=== PATIENT | male | born 1985 | race Caucasian/White ===

== ENCOUNTER 2018-03-31 23:00 | Emergency (ER) | payer BC ==
[2018-03-31] MEDS ORDERED: Sodium Chloride 0.9% 10 ML Syringe FLUSH PRN (23:54)
[2018-03-31] MEDS ORDERED: Sodium Chloride 0.9% 2.5 ML Syringe FLUSH PRN (23:54)
[2018-03-31] MEDS ORDERED: Ketorolac 30 MG/ML SDV IVPUSH ONE (23:55)
[2018-03-31] MEDS ORDERED: methylPREDNISolone Sodium Succinate 125 MG/2 ML SDV IVPUSH ONE (23:55)
--- NOTE | 2018-03-31 23:59 | EDM.PDOC ---
ED HPI GENERAL MEDICAL PROBLEM - General Chief Complaint: Back Pain or Injury Stated Complaint: BACK PAIN Time Seen by Provider: 03/31/18 23:23 - History of Present Illness INITIAL COMMENTS - FREE TEXT/NARRATIVE: HISTORY AND PHYSICAL: History of present illness: The patient is a 32-year-old male who has a long-standing history of lumbar back pain and bulging disks and last had an MRI in 2008 and presents with complaints of exacerbation of similar pain. The patient states he has done physical therapy and worked with a chiropractor but never had any surgical intervention has been doing very well. He says that several times a year he will have a flareup and he is able to manage it at home with [id number] meds rest and the chiropractor. The patient says that on Thursday he took a plane to come and work here and since that time he has had an exacerbation of similar pain that he has had in the past but it is worse than it has ever been. It is on the left side going down his left leg and he says that he has had only a small amount of urination since yesterday but does not feel like urine is trapped or feel pressure in the suprapubic area.. He has not leaking urine or having any bowel disturbances. He has no weakness in his leg but any movement or pressure on his left back causes pain and movement of his trunk and lower back also increases the pain.. He has no history and no kidney stones no fevers no chills or flank pain. He has no abdominal pain nausea or vomiting. Patient states that he would prefer not to receive any significant amount of narcotics as he has had issues with them in the past but will be accepting of medications here in the ED . Review of systems: As per history of present illness and below otherwise all systems reviewed and negative. Past medical history: As per history of present illness and as reviewed below otherwise noncontributory. Surgical history: As per history of present illness and as reviewed below otherwise noncontributory. Social history: No reported history of drug or alcohol abuse. Family history: As per history of present illness and as reviewed below otherwise noncontributory. Physical exam: General:: Well-developed well-nourished man who is nontoxic and looks very uncomfortable in the room. Vital signs are reviewed by me. Patient prefers to not lean on his left buttocks. HEENT: Atraumatic, normocephalic, negative for conjunctival pallor or scleral icterus, mucous membranes moist, throat clear, neck supple, nontender, trachea midline. Lungs: Clear to auscultation, breath sounds equal bilaterally, chest nontender. Heart: S1S2, regular rate and rhythm no overt murmurs Abdomen: Soft, nondistended, nontender. NABSNegative for costovertebral tenderness. Pelvis: Stable nontender. Genitourinary: Deferred. Rectal: Perianal sensation is intact and push and squeeze and tone are also intact Extremities: Atraumatic, negative for cords or calf pain. Neurovascular unremarkable. Full range of motion without any defects or deficits Neuro: Awake, alert, oriented. Cranial nerves II through XII unremarkable. Cerebellum unremarkable. Motor and sensory unremarkable throughout. Exam nonfocal. Dorsi and plantar flexion are intact 5/5 inclusive of the great toe. Reflexes on the right is brisk +2 and reflex on the left is very diminished Back: There are no midline step-offs in his defects of the thoracic or lumbar spine and there is discomfort with palpation of the paraspinal musculature on the left extending into the buttocks. Patient has a great deal of discomfort when he is trying to lay completely in the supine position for first to keep his hips flexed. Diagnostics: Bladder [id number] Therapeutics: IV, Solu-Medrol, Toradol Ativan Dilaudid I discussed the care plan with the patient and significant other at bedside. Currently he is feeling significantly improved and the pain is down to a 3/10. He continues to have no weakness in his legs no tingling or numbness and he now tells me that he has had urine output throughout the day but he has not been eating and drinking very much though it has been less than his usual. The patient also tells me that he went to work today and did activities despite the pain which may have aggravated it even more. I've offered the patient CT scan of the lumbar spine with the caveat that it does not replace an MRI but I am unable to do that at this time; I told them the CT scan might offer us some information about his ongoing pain but would not be definitive testing.. I have also told the patient we have limited resources and we cannot do MRI at this time but that I would be willing to transfer him to do an MRI if he felt that this pain was not significantly better and he would like to defer that at this time. He would like to try to go home and try pain management at home and return if there are problems and connect for an outpatient MRI with our clinic. He states that because of his narcotic history he would only like 3 tablets of any narcotic but he is comfortable with muscle relaxers and Toradol. I will write prescriptions for all of these. Impression: Lumbar back pain with history of disc disease improving Definitive disposition and diagnosis as appropriate pending reevaluation and review of above. 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 ED EXAM, GENERAL - Physical Exam Exam: See Below (see dictation) Course - Vital Signs Last Recorded V/S: Last Vital Signs Temp 35.8 C 03/31/18 23:27 Pulse 72 03/31/18 23:27 Resp 20 03/31/18 23:27 BP 116/78 03/31/18 23:27 Pulse Ox 96 03/31/18 23:27 - Orders/Labs/Meds Orders: Active Orders 24 hr Category Date Time Status Bladder Scan [RC] ASDIRECTED Care 03/31/18 23:54 Active Sodium Chloride 0.9% [Saline Flush] Med 03/31/18 23:54 Active 10 ml FLUSH ASDIRECTED PRN Sodium Chloride 0.9% [Saline Flush] Med 03/31/18 23:54 Active 2.5 ml FLUSH ASDIRECTED PRN Saline Lock Insert [OM.PC] Stat Oth 03/31/18 23:54 Ordered Medication Orders Sodium Chloride (Saline Flush) 10 ml FLUSH ASDIRECTED PRN PRN Reason: Keep Vein Open Sodium Chloride (Saline Flush) 2.5 ml FLUSH ASDIRECTED PRN PRN Reason: Keep Vein Open Meds: Medications Generic Name Dose Route Start Last Admin Trade Name Frestas PRN Reason Stop Dose Admin Sodium Chloride 10 ml 03/31/18 23:54 Saline Flush FLUSH ASDIRECTED PRN Keep Vein Open Sodium Chloride 2.5 ml 03/31/18 23:54 Saline Flush FLUSH ASDIRECTED PRN Keep Vein Open Discontinued Medications Generic Name Dose Route Start Last Admin Trade Name Van PRN Reason Stop Dose Admin Hydromorphone HCl 1 mg 04/01/18 00:05 04/01/18 00:11 Dilaudid IVPUSH 04/01/18 00:06 1 mg ONETIME ONE Administration Ketorolac Tromethamine 30 mg 03/31/18 23:55 04/01/18 00:10 Toradol IVPUSH 03/31/18 23:56 30 mg ONETIME ONE Administration Lorazepam 0.5 mg 04/01/18 00:05 04/01/18 00:11 Ativan IVPUSH 04/01/18 00:06 0.5 mg ONETIME ONE Administration Methylprednisolone Sodium Succinate 125 mg 03/31/18 23:55 04/01/18 00:10 Solu-Medrol IVPUSH 03/31/18 23:56 125 mg ONETIME ONE Administration Ondansetron HCl 4 mg 04/01/18 00:14 04/01/18 00:15 Zofran IVPUSH 04/01/18 00:15 4 mg ONETIME ONE Administration Ondansetron HCl Confirm 04/01/18 00:14 Zofran Administered 04/01/18 00:15 Dose 4 mg .ROUTE .STK-MED ONE Departure - Departure Time of Disposition: 01:10 Disposition: Home, Self-Care 01 Condition: Good (Lumbar back pain) Clinical Impression: Lumbar back pain, Lumbar disc disease - Discharge Information Referrals: PCP,None [Primary Care Provider] - Forms: ED Department Discharge Additional Instructions: The following information is given to patients seen in the emergency department who are being discharged to home. This information is to outline your options for follow-up care. We provide all patients seen in our emergency department with a follow-up referral. The need for follow-up, as well as the timing and circumstances, are variable depending upon the specifics of your emergency department visit. If you don't have a primary care physician on staff, we will provide you with a referral. We always advise you to contact your personal physician following an emergency department visit to inform them of the circumstance of the visit and for follow-up with them and/or the need for any referrals to a consulting specialist. The emergency department will also refer you to a specialist when appropriate. This referral assures that you have the opportunity for followup care with a specialist. All of these measure are taken in an effort to provide you with optimal care, which includes your followup. Under all circumstances we always encourage you to contact your private physician who remains a resource for coordinating your care. When calling for followup care, please make the office aware that this follow-up is from your recent emergency room visit. If for any reason you are refused follow-up, please contact the [facility] emergency department at and ask to speak to the emergency department charge nurse. [facility] Primary care- Internal Medicine and Family [address] [address] Please use medications as needed and prescribed but take the Medrol Dosepak starting later this afternoon. Please call and schedule a follow-up appointment in our residency clinic using resources given to you today. Please return to ER as needed and as we have discussed. Try to stretch and open up the area as much as possible and do all activities very slowly and carefully so as to avoid new injury. - My Orders Last 24 Hours: My Active Orders 03/31/18 23:54 Bladder Scan [RC] ASDIRECTED Sodium Chloride 0.9% [Saline Flush] 10 ml FLUSH ASDIRECTED PRN Sodium Chloride 0.9% [Saline Flush] 2.5 ml FLUSH ASDIRECTED PRN Saline Lock Insert [OM.PC] Stat - Assessment/Plan Last 24 Hours: My Active Orders 03/31/18 23:54 Bladder Scan [RC] ASDIRECTED Sodium Chloride 0.9% [Saline Flush] 10 ml FLUSH ASDIRECTED PRN Sodium Chloride 0.9% [Saline Flush] 2.5 ml FLUSH ASDIRECTED PRN Saline Lock Insert [OM.PC] Stat
[2018-04-01] MEDS ORDERED: LORazepam 2 MG/ML SDV IVPUSH ONE (00:05)
[2018-04-01] MEDS ORDERED: HYDROmorphone 1 MG/ML Syringe IVPUSH ONE ×2 (00:05→01:13)
[2018-04-01] MEDS ORDERED: Ondansetron 4 MG/2 ML SDV IVPUSH ONE (00:14)
[2018-04-01] MEDS ORDERED: Ondansetron 4 MG/2 ML SDV ONE (00:14)
== END 2018-04-01 02:00 | disposition home or self-care (01) ==
LOC: MW.ED 23:00
DX: M51.9 Unspecified thoracic, thoracolumbar and lumbosacral intervertebral disc disorder (principal); F31.9 Bipolar disorder, unspecified; F17.210 Nicotine dependence, cigarettes, uncomplicated; Z79.899 Other long term (current) drug therapy
CPT/HCPCS: 51798; 96374; 96375; 96376; 99283; J1170; J1885; J2060; J2405; J2930

== ENCOUNTER 2018-05-07 13:19 | Emergency (ER) | payer BC ==
--- NOTE | 2018-05-07 13:41 | EDM.PDOC ---
ED HPI GENERAL MEDICAL PROBLEM - General Chief Complaint: Back Pain or Injury Stated Complaint: BACK PAIN Time Seen by Provider: 05/07/18 13:35 - History of Present Illness INITIAL COMMENTS - FREE TEXT/NARRATIVE: HISTORY AND PHYSICAL: History of present illness: The patient is a 33-year-old male with a long-standing history of lumbar back pain and "bulging disks" who was seen here on March 31 by me and presented at that time with statements that he has flareups of his back pain several times per year and has worked with a chiropractor and physical therapy in the past for this pain. He has never had surgical intervention. On that visit he had told me his last MRI was 2008 and that he usually manages his back pain flareups with [id number] preps. He told me on that visit that he did have an issue in the past with narcotics and pain meds and he was concerned about using anything strong for his back pain. On that visit he had back pain radiating down his left leg which is typical for him and he was evaluated and treated and offered imaging and declined at that time. It was recommended that he follow-up to get an outpatient MRI and on that visit he was given 3 tablets of narcotics and muscle relaxer for home. The patient received medications here in the ED which did improve his pain. The patient represented today in the ED with complaints of similar pain at his left lower back radiating to his butt and leg. The pain is very similar to his prior episodes and is no different from the last time that I saw him. He denies bowel or bladder disturbances and since his last visit has seen his provider back in [place] as well as his chiropractor and has an MRI scheduled for next Thursday, 5 days from now. The patient states he is leaving for home and 4 days and he consulted his physician about this exacerbation and back pain associated with numbness in his leg. The patient says that he traveled back here and was doing well here and performing his normal work and he said over the last several days the pain has worsened and he thinks he may have aggravated the pain at work. He says he doesn't feel like he is retaining urine nor has he had any loss of bowel or bladder and he has no numbness to his butt area. He says that he does feel weaker in his left leg but he is able to ambulate and do all normal activities. He also says that his leg will intermittently feel numb and tingly but is not persistent. In consultation with his provider back at home in [place] it was recommended that he come here to get pain management and be able to get through the next few days to go home to [place] and have the MRI. Patient is only seeking pain management until that time. The patient and girlfriend tell me that his provider in [place] told him that is L5-S1 were fused and that his L4 disc was "worn out" Review of systems: As per history of present illness and below otherwise all systems reviewed and negative. Past medical history: As per history of present illness and as reviewed below otherwise noncontributory. Surgical history: As per history of present illness and as reviewed below otherwise noncontributory. Social history: No reported history of drug or alcohol abuse. Family history: As per history of present illness and as reviewed below otherwise noncontributory. Physical exam: General: Well-developed well-nourished man who is nontoxic and vital signs are noted by me. 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 He is ambulating about the ED without any distress or ataxia. HEENT: Atraumatic, normocephalic, negative for conjunctival pallor or scleral icterus, mucous membranes moist, throat clear, neck supple, nontender, trachea midline. Lungs: Clear to auscultation, breath sounds equal bilaterally, chest nontender. Heart: S1S2, regular rate and rhythm no overt murmurs Abdomen: Soft, nondistended, nontender. Negative for masses or hepatosplenomegaly. Negative for costovertebral tenderness. Pelvis: Stable nontender. Genitourinary: Deferred. Rectal: Deferred. Extremities: Atraumatic, negative for cords or calf pain. Neurovascular unremarkable. Neuro: Awake, alert, oriented. Cranial nerves II through XII unremarkable. Cerebellum unremarkable. Motor and sensory unremarkable throughout. Exam nonfocal. Dorsi and plantar flexion are intact 5/5 inclusive of the great toe. Patellar reflex on the right is +1 over 2 and on the left is +2 over 4, the left being his affected side. Specifically on simple touch and pressure on the left lower extremity was completely intact on my evaluation. The patient also ambulated in the ED without any distress and he had a good kick at the knee on the left as well as good hip flexor and hamstring use on the right with strength 5/5 Back: There are no midline step-offs tenderness defects of the thoracic or lumbar spine no posterior pelvis tenderness and no discrete areas of muscle tenderness or discomfort or CVA tenderness. Diagnostics: [] Therapeutics: Norflex [place] Patient states that after I saw him on the last visit that he thought the Medrol Kye did help as did the muscle relaxer and pain meds. I will give him a Medrol dose pack as well as [place] to get him through the next few days and the Norflex. He is currently taking Zanaflex and says that that did not work very well and he ran out of that prescription. I advised him on reasons to return to the ED and to keep his scheduled plan of MRI next week. Impression: Lumbar back pain with history of degenerative disc disease acute on chronic Definitive disposition and diagnosis as appropriate pending reevaluation and review of above. 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 ED EXAM, GENERAL - Physical Exam Exam: See Below (See dictation) Course - Vital Signs Last Recorded V/S: Last Vital Signs Temp 36.4 C 05/07/18 13:40 Pulse 80 05/07/18 13:40 Resp 18 05/07/18 13:40 BP 121/89 05/07/18 13:40 Pulse Ox 97 05/07/18 13:40 - Orders/Labs/Meds Orders: Active Orders 24 hr Category Date Time Status Acetaminophen/HYDROcodone [[place] 325-10 MG] Med 05/07/18 14:01 Once 1 tab PO ONETIME ONE Orphenadrine [Norflex] Med 05/07/18 14:01 Once 60 mg IM ONETIME ONE Medication Orders Hydrocodone Bitart/Acetaminophen ([place] 325-10 Mg) 1 tab PO ONETIME ONE Stop: 05/07/18 14:02 Orphenadrine Citrate (Norflex) 60 mg IM ONETIME ONE Stop: 05/07/18 14:02 Meds: Medications Generic Name Dose Route Start Last Admin Trade Name Van PRN Reason Stop Dose Admin Hydrocodone Bitart/Acetaminophen 1 tab 05/07/18 14:01 [place] 325-10 Mg PO 05/07/18 14:02 ONETIME ONE Orphenadrine Citrate 60 mg 05/07/18 14:01 Norflex IM 05/07/18 14:02 ONETIME ONE Departure - Departure Time of Disposition: 14:06 Disposition: Home, Self-Care 01 Condition: Good Clinical Impression: Lumbar disc disease, Lumbar back pain - Discharge Information Referrals: PCP,None [Primary Care Provider] - Forms: ED Department Discharge Additional Instructions: The following information is given to patients seen in the emergency department who are being discharged to home. This information is to outline your options for follow-up care. We provide all patients seen in our emergency department with a follow-up referral. The need for follow-up, as well as the timing and circumstances, are variable depending upon the specifics of your emergency department visit. If you don't have a primary care physician on staff, we will provide you with a referral. We always advise you to contact your personal physician following an emergency department visit to inform them of the circumstance of the visit and for follow-up with them and/or the need for any referrals to a consulting specialist. The emergency department will also refer you to a specialist when appropriate. This referral assures that you have the opportunity for followup care with a specialist. All of these measure are taken in an effort to provide you with optimal care, which includes your followup. Under all circumstances we always encourage you to contact your private physician who remains a resource for coordinating your care. When calling for followup care, please make the office aware that this follow-up is from your recent emergency room visit. If for any reason you are refused follow-up, please contact the [facility] emergency department at and ask to speak to the emergency department charge nurse. [facility] Primary care- Internal Medicine and Family [address] [address] Please use all medications as needed and as directed and you may also add over- the-counter ibuprofen and/or Tylenol supplement. Use heat or ice as you choose and please keep your appointment next week for MRI in [place]. Return to ER as needed and as we discussed - My Orders Last 24 Hours: My Active Orders 05/07/18 14:01 Acetaminophen/HYDROcodone [[place] 325-10 MG] 1 tab PO ONETIME ONE Orphenadrine [Norflex] 60 mg IM ONETIME ONE - Assessment/Plan Last 24 Hours: My Active Orders 05/07/18 14:01 Acetaminophen/HYDROcodone [[place] 325-10 MG] 1 tab PO ONETIME ONE Orphenadrine [Norflex] 60 mg IM ONETIME ONE
[2018-05-07] MEDS ORDERED: Acetaminophen/HYDROcodone 325-10 MG Tab PO ONE (14:01)
== END 2018-05-07 14:30 | disposition home or self-care (01) ==
LOC: MW.ED 13:19
DX: M53.87 Other specified dorsopathies, lumbosacral region (principal); F31.9 Bipolar disorder, unspecified; Z79.899 Other long term (current) drug therapy
CPT/HCPCS: 96372; 99283; A9270; J2360

== ENCOUNTER 2018-05-08 13:21 | Emergency (ER) | payer BC ==
[2018-05-08] MEDS ORDERED: Diphtheria,Pertussis(Acell),Tetanus Vaccine 0.5 ML Syringe IM ONE (13:52)
--- NOTE | 2018-05-08 13:55 | EDM.PDOC ---
ED HPI GENERAL MEDICAL PROBLEM - General Chief Complaint: Laceration Stated Complaint: CUT TO HIS THUMP Time Seen by Provider: 05/08/18 13:50 Source of Information: Reports: Patient History Limitations: Reports: No Limitations - History of Present Illness INITIAL COMMENTS - FREE TEXT/NARRATIVE: HISTORY AND PHYSICAL: History of present illness: She is a 33-year-old male here with a laceration to his right thumb. He states that he was shooting a crossbow today and the string caught his right thumb just lateral to the fingernail. Patient is uncertain of tetanus status. Review of systems: As per history of present illness and below otherwise all systems reviewed and negative. Past medical history: As per history of present illness and as reviewed below otherwise noncontributory. Surgical history: As per history of present illness and as reviewed below otherwise noncontributory. Social history: No reported history of drug or alcohol abuse. Family history: As per history of present illness and as reviewed below otherwise noncontributory. Physical exam: General: Patient sitting comfortably in no acute distress HEENT: Atraumatic, normocephalic, pupils reactive, negative for conjunctival pallor or scleral icterus, mucous membranes moist, throat clear, neck supple, nontender, trachea midline. No meningeal signs. Lungs: Clear to auscultation, breath sounds equal bilaterally, chest nontender. Heart: S1S2, regular, negative for clicks, rubs, or overt murmur. Skin: There is a very superficial 1.5 meter laceration just lateral to the right fingernail. Ecchymosis of the lateral side of the fingernail bed noted. Wound was explored to base, no tendon or vascular injury. Extremities: negative for cords or calf pain. Neurovascular unremarkable. Neuro: Awake, alert, oriented. Cranial nerves II through XII unremarkable. Cerebellum unremarkable. Motor and sensory unremarkable throughout. Exam nonfocal. Notes: Diagnostics: None Therapeutics: Tdap Impression: Laceration Plan: 1. Keep the area clean and dry as instructed. 2. Follow-up with primary care provider as needed. 3. Return to ED as needed as discussed Definitive disposition and diagnosis as appropriate pending reevaluation and review of above. right thumb Pain Score (Numeric/FACES): 8 - Related Data Allergies Allergy/AdvReac Type Severity Reaction Status Date / Time No Known Allergies Allergy Verified 05/08/18 13:35 Home Meds: Home Meds Sertraline HCl [Zoloft] 100 mg PO DAILY 03/31/18 [History] Zolpidem Tartrate [Ambien] 10 mg PO DAILY 03/31/18 [History] lamoTRIgine [Lamictal] 100 mg PO DAILY 03/31/18 [History] Past Medical History HEENT History: Reports: None Cardiovascular History: Reports: None Respiratory History: Reports: None Gastrointestinal History: Reports: None Genitourinary History: Reports: None Musculoskeletal History: Reports: Amputation Other Neuro History: bulging disc; 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 Psychiatric History: Reports: Bipolar, Depression Other Psychiatric History: insomnia Endocrine/Metabolic History: Reports: None Hematologic History: Reports: None Oncologic (Cancer) History: Reports: None Dermatologic History: Reports: None - Infectious Disease History Infectious Disease History: Reports: Chicken Pox - Past Surgical History Neurological Surgical History: Reports: None Social & Family History - Family History Family Medical History: Noncontributory - Tobacco Use Smoking Status *Q: Current Every Day Smoker Years of Tobacco use: 20 Packs/Tins Daily: 1 - Caffeine Use Caffeine Use: Reports: Coffee - Recreational Drug Use Recreational Drug Use: No ED ROS GENERAL - Review of Systems Review Of Systems: ROS reveals no pertinent complaints other than HPI. ED EXAM, SKIN/RASH Exam: See Below (see dictation) Course - Vital Signs Last Recorded V/S: Last Vital Signs Temp 36.4 C 05/08/18 13:21 Pulse 75 05/08/18 13:21 Resp 18 05/08/18 13:21 BP 109/63 05/08/18 13:21 Pulse Ox 96 05/08/18 13:21 Departure - Departure Time of Disposition: 13:54 Disposition: Home, Self-Care 01 Condition: Good Clinical Impression: Laceration - Discharge Information Referrals: PCP,None [Primary Care Provider] - Additional Instructions: The following information is given to patients seen in the emergency department who are being discharged to home. This information is to outline your options for follow-up care. We provide all patients seen in our emergency department with a follow-up referral. The need for follow-up, as well as the timing and circumstances, are variable depending upon the specifics of your emergency department visit. If you don't have a primary care physician on staff, we will provide you with a referral. We always advise you to contact your personal physician following an emergency department visit to inform them of the circumstance of the visit and for follow-up with them and/or the need for any referrals to a consulting specialist. The emergency department will also refer you to a specialist when appropriate. This referral assures that you have the opportunity for follow-up care with a specialist. All of these measure are taken in an effort to provide you with optimal care, which includes your follow-up. Under all circumstances we always encourage you to contact your private physician who remains a resource for coordinating your care. When calling for follow-up care, please make the office aware that this follow-up is from your recent emergency room visit. If for any reason you are refused follow-up, please contact the [facility] Emergency Department at and asked to speak to the emergency department charge nurse. [facility] [address] [place] [id number] [facility] [address] [place] [id number] 1. Keep the area clean and dry as instructed. 2. Follow-up with primary care provider as needed. 3. Return to ED as needed as discussed
== END 2018-05-08 14:07 | disposition home or self-care (01) ==
LOC: MW.ED 13:21
DX: S61.011A Laceration without foreign body of right thumb without damage to nail, initial encounter (principal); Z79.899 Other long term (current) drug therapy; F17.210 Nicotine dependence, cigarettes, uncomplicated; Z23 Encounter for immunization; W23.0XXA Caught, crushed, jammed, or pinched between moving objects, initial encounter
CPT/HCPCS: 90471; 90715; 99282-25

== ENCOUNTER 2018-09-14 11:15 | Emergency (ER) | payer OTHER, BC ==
[2018-09-14] MEDS ORDERED: Bacitracin Oint 1 GM U/D Packet TOP ONE (11:38)
--- NOTE | 2018-09-14 11:41 | EDM.PDOC ---
ED HPI GENERAL MEDICAL PROBLEM - General Chief Complaint: Laceration Stated Complaint: CUT ON RIGHT HAND Time Seen by Provider: 09/14/18 11:18 - History of Present Illness INITIAL COMMENTS - FREE TEXT/NARRATIVE: HISTORY AND PHYSICAL: History of present illness: The patient is a 33-year-old male who presents with a puncture wound to his right hand that he sustained at work while he was using a knife. The patient is left-hand dominant and said he was working with a knife when he actually stabbed his hand. He said it was "spurting blood" at the scene but a pressure dressing was applied and is no longer bleeding. The patient has no neurosensory changes in his digits and no other injuries. Patient is unsure of his last tetanus shot but according to the computer he had in April of this year Review of systems: As per history of present illness and below otherwise all systems reviewed and negative. Past medical history: As per history of present illness and as reviewed below otherwise noncontributory. Surgical history: As per history of present illness and as reviewed below otherwise noncontributory. Social history: No reported history of drug or alcohol abuse. Family history: As per history of present illness and as reviewed below otherwise noncontributory. Physical exam: General: Well-developed well-nourished man is nontoxic and vital signs are noted by me HEENT: Atraumatic, normocephalic, negative for conjunctival pallor or scleral icterus, mucous membranes moist, throat clear, neck supple, nontender, trachea midline. Lungs: Clear to auscultation, breath sounds equal bilaterally, chest nontender. Heart: S1S2, regular rate and rhythm no overt murmurs Abdomen: Soft, nondistended, nontender. NABS Pelvis: Deferred Genitourinary: Deferred. Rectal: Deferred. Extremities: Atraumatic with full range of motion of all extremities with the exception of the right hand where on the palmar surface near the hyperthenar eminence there is a 1 cm puncture laceration with a small amount of subcutaneous fat seen. There is no active bleeding no soft tissue swelling and no neurosensory changes in the hand or fingers. The patient has full intact flexion and extension good cap refill and positive pulses throughout. The legs are, negative for cords or calf pain. Neurovascular unremarkable. Neuro: Awake, alert, oriented. Cranial nerves II through XII unremarkable. Cerebellum unremarkable. Motor and sensory unremarkable throughout. Exam nonfocal. Diagnostics: [] Therapeutics: bacitracin and dressing, she was unsure of his last tetanus shot but according to the computer he had in April of this year Procedure note: After the procedure was explained to the patient and the wound was cleansed by nursing and the wound was explored. The Base was not able to be seen as this is a puncture wound. The small piece of subcutaneous fat that was emerging from the puncture area was debrided. The skin edges were reapproximately using a total number of #1 suture of 4-0 nylon . The patient tolerated the procedure well and there were no complications. Bacitracin and a dressing were applied. The repair was performed by Ivan TORRES Impression: Puncture laceration of left hand Definitive disposition and diagnosis as appropriate pending reevaluation and review of above. Left Hand Pain Score (Numeric/FACES): 5 - Related Data Allergies Allergy/AdvReac Type Severity Reaction Status Date / Time No Known Allergies Allergy Verified 05/08/18 13:35 Home Meds: Home Meds Sertraline HCl [Zoloft] 100 mg PO DAILY 03/31/18 [History] Zolpidem Tartrate [Ambien] 10 mg PO DAILY 03/31/18 [History] lamoTRIgine [Lamictal] 100 mg PO DAILY 03/31/18 [History] Pregabalin [Lyrica] 100 mg PO BID 09/14/18 [History] Past Medical History HEENT History: Reports: None Cardiovascular History: Reports: None Respiratory History: Reports: None Gastrointestinal History: Reports: None Genitourinary History: Reports: None Musculoskeletal History: Reports: Amputation Other Neuro History: bulging disc; 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 Psychiatric History: Reports: Bipolar, Depression Other Psychiatric History: insomnia Endocrine/Metabolic History: Reports: None Hematologic History: Reports: None Oncologic (Cancer) History: Reports: None Dermatologic History: Reports: None - Infectious Disease History Infectious Disease History: Reports: Chicken Pox - Past Surgical History Neurological Surgical History: Reports: None Social & Family History - Family History Family Medical History: Noncontributory - Caffeine Use Caffeine Use: Reports: Coffee ED ROS GENERAL - Review of Systems Review Of Systems: ROS reveals no pertinent complaints other than HPI. ED EXAM, SKIN/RASH Exam: See Below (See dictation) Course - Vital Signs Last Recorded V/S: Last Vital Signs Temp 36.3 C 09/14/18 11:29 Pulse 81 09/14/18 11:29 Resp 16 09/14/18 11:29 BP 118/74 09/14/18 11:29 Pulse Ox 95 09/14/18 11:29 - Orders/Labs/Meds Meds: Medications Discontinued Medications Generic Name Dose Route Start Last Admin Trade Name Van PRN Reason Stop Dose Admin Bacitracin 1 dose 09/14/18 11:38 Bacitracin Oint 1 Gm TOP 09/14/18 11:39 ONETIME ONE Lidocaine HCl 5 ml 09/14/18 11:37 Xylocaine-Mpf 1% INJECT 09/14/18 11:38 ONETIME ONE Departure - Departure Time of Disposition: 12:19 Disposition: Home, Self-Care 01 Condition: Good Clinical Impression: Puncture wound - Discharge Information Instructions: Puncture Wound, [id number] Referrals: PCP,None [Primary Care Provider] - Forms: ED Department Discharge Additional Instructions: The following information is given to patients seen in the emergency department who are being discharged to home. This information is to outline your options for follow-up care. We provide all patients seen in our emergency department with a follow-up referral. The need for follow-up, as well as the timing and circumstances, are variable depending upon the specifics of your emergency department visit. If you don't have a primary care physician on staff, we will provide you with a referral. We always advise you to contact your personal physician following an emergency department visit to inform them of the circumstance of the visit and for follow-up with them and/or the need for any referrals to a consulting specialist. The emergency department will also refer you to a specialist when appropriate. This referral assures that you have the opportunity for followup care with a specialist. All of these measure are taken in an effort to provide you with optimal care, which includes your followup. Under all circumstances we always encourage you to contact your private physician who remains a resource for coordinating your care. When calling for followup care, please make the office aware that this follow-up is from your recent emergency room visit. If for any reason you are refused follow-up, please contact the [facility] emergency department at and ask to speak to the emergency department charge nurse. [facility] Specialty clinic-Plastic Surgery and Hand Surgery Professional Building [address] [place] [id number] Please take the Augmentin you've been prescribed and as directed. Return to the ER in 7 days to have the suture removed and/o follow-up with our Hand surgeon for further care and evaluation. Return to ER if there is any drainage or redness or increased swelling to the area in the next few days.
== END 2018-09-14 12:40 | disposition home or self-care (01) ==
LOC: MW.ED 11:15
DX: S61.432A Puncture wound without foreign body of left hand, initial encounter (principal); Z79.899 Other long term (current) drug therapy; W26.0XXA Contact with knife, initial encounter
CPT/HCPCS: 99282

== ENCOUNTER 2019-08-15 15:13 | Emergency (ER) | payer BC ==
[2019-08-15] MEDS ORDERED: methylPREDNISolone Sodium Succinate 125 MG/2 ML SDV IVPUSH ONE (15:18)
[2019-08-15] MEDS ORDERED: diphenhydrAMINE 50 MG/ML SDV IVPUSH ONE (15:18)
--- NOTE | 2019-08-15 15:28 | EDM.PDOC ---
ED HPI GENERAL MEDICAL PROBLEM - General Chief Complaint: Allergic Reaction Stated Complaint: ALLERGIC REACTION Time Seen by Provider: 08/15/19 15:14 Source of Information: Reports: Patient History Limitations: Reports: No Limitations - History of Present Illness INITIAL COMMENTS - FREE TEXT/NARRATIVE: HISTORY AND PHYSICAL: History of present illness: Patient is a 34-year-old male who presents to the ED today with concern of right ear pain, right-sided throat pain since after eating lunch. Patient states he was eating at a local [employer] restaurant in which she is eating there many times. Patient states he ordered his usual food and has not eaten anything new. Patient states he was concerned that he might be having an allergic reaction because he began having right ear pain and right-sided throat pain after he was done eating. Patient denies any known allergies. Patient denies any other symptoms or concerns. Patient denies fever, chills, chest pain, shortness of breath, or cough. Denies headache, neck stiff ness, change in vision, syncope, or near syncope. Denies nausea, vomiting, abdominal pain, diarrhea, constipation, or dysuria. Has not noted any blood in urine or stool. Patient has been eating and drinking appropriately. Review of systems: As per history of present illness and below otherwise all systems reviewed and negative. Past medical history: As per history of present illness and as reviewed below otherwise noncontributory. Surgical history: As per history of present illness and as reviewed below otherwise noncontributory. Social history: See social history for further information Family history: As per history of present illness and as reviewed below otherwise noncontributory. Physical exam: General: Patient is alert, oriented, and in no acute distress. Patient sitting comfortably on exam table. HEENT: Atraumatic, normocephalic, pupils equal and reactive bilaterally, negative for conjunctival pallor or scleral icterus, mucous membranes moist, TMs normal bilaterally, throat clear, external auditory canal of the right is edematous with a mild amount granulation tissue in the canal, tragus tenderness of the right with tenderness with movement of the auricle which patients states is the pain he is having, negative mastoid tenderness bilaterally, neck supple, nontender, trachea midline. No drooling or trismus noted. No meningeal signs. No hot potato voice noted. Lungs: Clear to auscultation, breath sounds equal bilaterally, chest nontender. Heart: S1S2, regular rate and rhythm without overt murmur Abdomen: Soft, nondistended, nontender. Negative for masses or hepatosplenomegaly. Negative for costovertebral tenderness. Pelvis: Stable nontender. Genitourinary: Deferred. Rectal: Deferred. Skin: Intact, warm, dry. No lesions or rashes noted. Extremities: Atraumatic, negative for cords or calf pain. Neurovascular unremarkable. Neuro: Awake, alert, oriented. Cranial nerves II through XII unremarkable. Cerebellum unremarkable. Motor and sensory unremarkable throughout. Exam nonfocal. Notes: Discussed the importance for follow-up with a primary care provider. Voices understanding and is agreeable to plan of care. Denies any further questions or concerns at this time. Diagnostics: None Therapeutics: None Prescription: Cortisporin Otic Impression: Acute otitis externa Plan: 1. Take medication as prescribed. You can alternate ibuprofen and Tylenol as directed for pain and discomfort. 2. Follow-up with her primary care provider as discussed. Return to the ED as needed and as discussed. Definitive disposition and diagnosis as appropriate pending reevaluation and review of above. throat Pain Score (Numeric/FACES): 1 - Related Data Allergies Allergy/AdvReac Type Severity Reaction Status Date / Time No Known Allergies Allergy Verified 05/08/18 13:35 Home Meds: Home Meds Sertraline HCl [Zoloft] 100 mg PO DAILY 03/31/18 [History] Zolpidem Tartrate [Ambien] 10 mg PO DAILY 03/31/18 [History] lamoTRIgine [Lamictal] 100 mg PO DAILY 03/31/18 [History] Pregabalin [Lyrica] 100 mg PO BID 09/14/18 [History] Diazepam [Valium] 08/15/19 [History] oxyCODONE HCl/Acetaminophen [Percocet 10-325 mg Tablet] 08/15/19 [History] Past Medical History HEENT History: Reports: None Cardiovascular History: Reports: None Respiratory History: Reports: None Gastrointestinal History: Reports: None Genitourinary History: Reports: None Musculoskeletal History: Reports: Amputation Neurological History: Reports: Brain Injury, Head Trauma Other Neuro History: bulging disc; 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 Psychiatric History: Reports: Bipolar, Depression Other Psychiatric History: insomnia Endocrine/Metabolic History: Reports: None Hematologic History: Reports: None Oncologic (Cancer) History: Reports: None Dermatologic History: Reports: None - Infectious Disease History Infectious Disease History: Reports: Chicken Pox - Past Surgical History Neurological Surgical History: Reports: None, Laminectomy, Lumbar Spine Social & Family History - Family History Family Medical History: Noncontributory - Tobacco Use Smoking Status *Q: Current Every Day Smoker Years of Tobacco use: 20 Packs/Tins Daily: 1 - Caffeine Use Caffeine Use: Reports: Coffee - Recreational Drug Use Recreational Drug Use: No ED ROS ALLERGIC REACTION - Review of Systems Review Of Systems: Comprehensive ROS is negative, except as noted in HPI. ED EXAM GENERAL NO PERIP PULSE - Physical Exam Exam: See Below (see dictation) Course - Vital Signs Last Recorded V/S: Last Vital Signs Temp 97.3 F 08/15/19 15:18 Pulse 74 08/15/19 15:18 Resp 16 08/15/19 15:18 BP 146/77 H 08/15/19 15:18 Pulse Ox 96 08/15/19 15:18 - Orders/Labs/Meds Meds: Medications Discontinued Medications Generic Name Dose Route Start Last Admin Trade Name Govindq PRN Reason Stop Dose Admin Diphenhydramine HCl 50 mg 08/15/19 15:18 Benadryl IVPUSH 08/15/19 15:19 ONETIME ONE Methylprednisolone Sodium Succinate 125 mg 08/15/19 15:18 Solu-Medrol IVPUSH 08/15/19 15:19 ONETIME ONE Departure - Departure Time of Disposition: 15:28 Disposition: Home, Self-Care 01 Clinical Impression: Acute otitis externa Qualifiers: Otitis externa type: unspecified type Laterality: right Qualified Code(s): H60.501 - Unspecified acute noninfective otitis externa, right ear - Discharge Information Referrals: PCP,Williamobtain [Primary Care Provider] - Additional Instructions: The following information is given to patients seen in the emergency department who are being discharged to home. This information is to outline your options for follow-up care. We provide all patients seen in our emergency department with a follow-up referral. The need for follow-up, as well as the timing and circumstances, are variable depending upon the specifics of your emergency department visit. If you don't have a primary care physician on staff, we will provide you with a referral. We always advise you to contact your personal physician following an emergency department visit to inform them of the circumstance of the visit and for follow-up with them and/or the need for any referrals to a consulting specialist. The emergency department will also refer you to a specialist when appropriate. This referral assures that you have the opportunity for follow-up care with a specialist. All of these measure are taken in an effort to provide you with optimal care, which includes your follow-up. Under all circumstances we always encourage you to contact your private physician who remains a resource for coordinating your care. When calling for follow-up care, please make the office aware that this follow-up is from your recent emergency room visit. If for any reason you are refused follow-up, please contact the [facility] Emergency Department at and asked to speak to the emergency department charge nurse. [facility] [address] [place] [id number] [facility] [address] [place] [phone] 1. Take medication as prescribed. You can alternate ibuprofen and Tylenol as directed for pain and discomfort. 2. Follow-up with her primary care provider as discussed. Return to the ED as needed and as discussed.
== END 2019-08-15 15:50 | disposition home or self-care (01) ==
LOC: MW.ED 15:13
DX: H60.501 Unspecified acute noninfective otitis externa, right ear (principal); F31.9 Bipolar disorder, unspecified; F17.210 Nicotine dependence, cigarettes, uncomplicated; Z79.899 Other long term (current) drug therapy
CPT/HCPCS: 99283

== ENCOUNTER 2019-08-19 14:11 | Emergency (ER) | payer BC ==
--- NOTE | 2019-08-19 14:30 | EDM.PDOC ---
ED HPI GENERAL MEDICAL PROBLEM - General Chief Complaint: ENT Problem Stated Complaint: SORE THROAT Time Seen by Provider: 08/19/19 14:30 Source of Information: Reports: Patient - History of Present Illness INITIAL COMMENTS - FREE TEXT/NARRATIVE: HISTORY AND PHYSICAL: History of present illness: [Patient presents with sore throat, seen initially at onset diagnosed with an external ear infection was provided eardrops however this slowly progressed over the last 4 days now has moderate pharyngitis white patchy exudates no drooling trismus or muffled voice Some difficulty with solid food no difficulty with liquid] Review of systems: As per history of present illness and below otherwise all systems reviewed and negative. Past medical history: As per history of present illness and as reviewed below otherwise noncontributory. Surgical history: As per history of present illness and as reviewed below otherwise noncontributory. Social history: No reported history of drug or alcohol abuse. Family history: As per history of present illness and as reviewed below otherwise noncontributory. Physical exam: HEENT: Atraumatic, normocephalic, pupils reactive, negative for conjunctival pallor or scleral icterus, mucous membranes moist, throat clear, neck supple, nontender, trachea midline. Estuardo signs as per history of present illness Lungs: Clear to auscultation, breath sounds equal bilaterally, chest nontender. Heart: S1S2, regular, negative for clicks, rubs, or JVD. Abdomen: Soft, nondistended, nontender. Negative for masses or hepatosplenomegaly. Negative for costovertebral tenderness. Pelvis: Stable nontender. Genitourinary: Deferred. Rectal: Deferred. Extremities: Atraumatic, negative for cords or calf pain. Neurovascular unremarkable. Neuro: Awake, alert, oriented. Cranial nerves II through XII unremarkable. Cerebellum unremarkable. Motor and sensory unremarkable throughout. Exam nonfocal. Diagnostics: [: ] Therapeutics: [ Rocephin 1 g IM Prednisone 40 mg by mouth daily 3 days ] Augmentin Impression: pharyngitis Definitive disposition and diagnosis as appropriate pending reevaluation and review of above. bilateral ears and throat Pain Score (Numeric/FACES): 8 - Related Data Allergies Allergy/AdvReac Type Severity Reaction Status Date / Time No Known Allergies Allergy Verified 08/19/19 14:23 Home Meds: Home Meds Sertraline HCl [Zoloft] 100 mg PO DAILY 07/18/18 [History] Zolpidem Tartrate [Ambien] 10 mg PO DAILY 03/31/18 [History] lamoTRIgine [Lamictal] 100 mg PO DAILY 03/31/18 [History] Pregabalin [Lyrica] 100 mg PO BID 09/14/18 [History] Diazepam [Valium] 1 tab PO ASDIRECTED 08/15/19 [History] oxyCODONE HCl/Acetaminophen [Percocet 10-325 mg Tablet] 1 tab PO ASDIRECTED 11/02 [History] Past Medical History HEENT History: Reports: None Cardiovascular History: Reports: None Respiratory History: Reports: None Gastrointestinal History: Reports: None Genitourinary History: Reports: None Musculoskeletal History: Reports: Amputation Neurological History: Reports: Brain Injury, Head Trauma Other Neuro History: bulging disc; 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 Psychiatric History: Reports: Bipolar, Depression Other Psychiatric History: insomnia Endocrine/Metabolic History: Reports: None Hematologic History: Reports: None Oncologic (Cancer) History: Reports: None Dermatologic History: Reports: None - Infectious Disease History Infectious Disease History: Reports: Chicken Pox - Past Surgical History Neurological Surgical History: Reports: None, Laminectomy, Lumbar Spine Social & Family History - Family History Family Medical History: Noncontributory - Tobacco Use Smoking Status *Q: Current Every Day Smoker Years of Tobacco use: 20 Packs/Tins Daily: 0.5 - Caffeine Use Caffeine Use: Reports: Coffee - Recreational Drug Use Recreational Drug Use: No ED ROS GENERAL - Review of Systems Review Of Systems: See Below ED EXAM, GENERAL - Physical Exam Exam: See Below Course - Vital Signs Last Recorded V/S: Last Vital Signs Temp 97.4 F 08/19/19 14:21 Pulse 85 08/19/19 14:21 Resp 18 08/19/19 14:21 BP 123/82 08/19/19 14:21 Pulse Ox 96 08/19/19 14:21 - Orders/Labs/Meds Orders: Active Orders 24 hr Category Date Time Status cefTRIAXone [Rocephin] Med 08/19/19 14:33 Once 1 gm IM ONETIME ONE Departure - Departure Time of Disposition: 14:34 Disposition: Home, Self-Care 01 Condition: Good Clinical Impression: Pharyngitis - Discharge Information Referrals: PCP,Not In Area [Primary Care Provider] - Forms: ED Department Discharge Additional Instructions: The following information is given to patients seen in the emergency department who are being discharged to home. This information is to outline your options for follow-up care. We provide all patients seen in our emergency department with a follow-up referral. The need for follow-up, as well as the timing and circumstances, are variable depending upon the specifics of your emergency department visit. If you don't have a primary care physician on staff, we will provide you with a referral. We always advise you to contact your personal physician following an emergency department visit to inform them of the circumstance of the visit and for follow-up with them and/or the need for any referrals to a consulting specialist. The emergency department will also refer you to a specialist when appropriate. This referral assures that you have the opportunity for follow-up care with a specialist. All of these measure are taken in an effort to provide you with optimal care, which includes your follow-up. Under all circumstances we always encourage you to contact your private physician who remains a resource for coordinating your care. When calling for follow-up care, please make the office aware that this follow-up is from your recent emergency room visit. If for any reason you are refused follow-up, please contact the [facility] emergency department at and asked to speak to the emergency department charge nurse. - My Orders Last 24 Hours: My Active Orders 08/19/19 14:33 cefTRIAXone [Rocephin] 1 gm IM ONETIME ONE - Assessment/Plan Last 24 Hours: My Active Orders 08/19/19 14:33 cefTRIAXone [Rocephin] 1 gm IM ONETIME ONE
[2019-08-19] MEDS ORDERED: cefTRIAXone 1 GM Vial IM ONE (14:33)
== END 2019-08-19 15:16 | disposition home or self-care (01) ==
LOC: MW.ED 14:11
DX: J02.9 Acute pharyngitis, unspecified (principal); F32.9 Major depressive disorder, single episode, unspecified; F17.210 Nicotine dependence, cigarettes, uncomplicated; Z79.899 Other long term (current) drug therapy
CPT/HCPCS: 96372; 99282; J0696; J2001

== ENCOUNTER 2020-01-17 04:14 | Emergency (ER) | payer BC ==
--- NOTE | 2020-01-17 04:33 | EDM.PDOC ---
ED HPI GENERAL MEDICAL PROBLEM - General Chief Complaint: ENT Problem Stated Complaint: SWOLLEN THROAT Time Seen by Provider: 01/17/20 04:23 Source of Information: Reports: Patient History Limitations: Reports: No Limitations - History of Present Illness Onset: Today Duration: Hour(s): (one) Location: Reports: Face Quality: Reports: Ache Severity: Moderate Improves with: Reports: None Worsens with: Reports: None Associated Symptoms: Reports: No Other Symptoms - Related Data Allergies Allergy/AdvReac Type Severity Reaction Status Date / Time No Known Allergies Allergy Verified 01/17/20 04:22 Home Meds: Home Meds Sertraline HCl [Zoloft] 100 mg PO DAILY 03/31/18 [History] Zolpidem Tartrate [Ambien] 10 mg PO DAILY 03/31/18 [History] lamoTRIgine [Lamictal] 100 mg PO DAILY 03/31/18 [History] Pregabalin [Lyrica] 100 mg PO BID 09/14/18 [History] predniSONE [Prednisone] 20 mg PO BID #14 tablet 01/17/20 [Rx] Past Medical History HEENT History: Reports: None Cardiovascular History: Reports: None Respiratory History: Reports: None Gastrointestinal History: Reports: None Genitourinary History: Reports: None Musculoskeletal History: Reports: Amputation Neurological History: Reports: Brain Injury, Head Trauma Other Neuro History: bulging disc; 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 Psychiatric History: Reports: Bipolar, Depression Other Psychiatric History: insomnia Endocrine/Metabolic History: Reports: None Hematologic History: Reports: None Oncologic (Cancer) History: Reports: None Dermatologic History: Reports: None - Infectious Disease History Infectious Disease History: Reports: Chicken Pox - Past Surgical History Neurological Surgical History: Reports: None, Laminectomy, Lumbar Spine Social & Family History - Family History Family Medical History: Noncontributory - Caffeine Use Caffeine Use: Reports: Coffee ED ROS ENT - Review of Systems Review Of Systems: Comprehensive ROS is negative, except as noted in HPI. ED EXAM, ENT - Physical Exam Exam: See Below Exam Limited By: No Limitations General Appearance: Alert, No Apparent Distress Mouth/Throat: Uvular Edema. No: Pharyngeal Erythema, Throat Swelling Head: Atraumatic Neck: Normal Inspection, Supple, Non-Tender. No: Lymphadenopathy (L), Lymphadenopathy (R) Respiratory/Chest: No Respiratory Distress, Lungs Clear, Normal Breath Sounds Cardiovascular: Regular Rate, Rhythm Extremities: Normal Inspection Neurological: Alert, Oriented Skin: Warm, Dry, No Rash Course - Vital Signs Text/Narrative:: After receiving Solu-Medrol 125 mg and 40 mg Pepcid and 50 mg of Benadryl patient is feeling better and his uvula is approximately half the size it was upon presentation. I am discharging him home with a prescription for prednisone recommend he continue with the Benadryl and Pepcid. Patient will need follow-up with an dray driver for skin testing. Last Recorded V/S: Last Vital Signs Temp 35.6 C L 01/17/20 04:24 Pulse 61 01/17/20 05:45 Resp 16 01/17/20 05:45 BP 130/94 H 01/17/20 04:24 Pulse Ox 95 01/17/20 05:45 - Orders/Labs/Meds Orders: Active Orders 24 hr Category Date Time Status CULTURE STREP A CONFIRMATION [] Stat Lab 01/17/20 04:42 Results STREP SCRN A RAPID W CULT CONF [] Stat Lab 01/17/20 04:42 Results Meds: Medications Discontinued Medications Generic Name Dose Route Start Last Admin Trade Name Govindq PRN Reason Stop Dose Admin Diphenhydramine HCl 25 mg 01/17/20 04:35 01/17/20 04:44 Benadryl IVPUSH 01/17/20 04:36 25 mg ONETIME ONE Administration Diphenhydramine HCl 25 mg 01/17/20 06:10 01/17/20 06:20 Benadryl IVPUSH 01/17/20 06:11 25 mg ONETIME ONE Administration Famotidine 40 mg 01/17/20 04:35 01/17/20 04:44 Pepcid IVPUSH 01/17/20 04:36 40 mg ONETIME ONE Administration Sodium Chloride Confirm 01/17/20 04:40 01/17/20 04:44 Normal Saline Administered 01/17/20 04:41 20 mls/hr Dose Administration 20 mls @ as directed .ROUTE .STK-MED ONE Methylprednisolone Sodium Succinate 125 mg 01/17/20 04:45 01/17/20 04:44 Solu-Medrol IV 01/17/20 04:46 125 mg NOW ONE Administration Departure - Departure Time of Disposition: 07:00 Disposition: Home, Self-Care 01 Condition: Good Clinical Impression: Swollen uvula, Pharyngitis - Discharge Information Instructions: Pharyngitis Forms: ED Department Discharge Additional Instructions: Continue with prednisone and Pepcid as directed. Benadryl as needed. Follow- up with dray driver for skin testing. Avoid all nuts. Return to ER if worse. Sepsis Event Note - Focused Exam Vital Signs: Vital Signs Temp Pulse Resp BP Pulse Ox 01/17/20 05:45 61 16 95 01/17/20 05:15 60 18 96 01/17/20 04:24 35.6 C L 76 18 130/94 H 95 Date Exam was Performed: 01/17/20 Time Exam was Performed: 06:59 - My Orders Last 24 Hours: My Active Orders 01/17/20 04:42 CULTURE STREP A CONFIRMATION [RM] Stat STREP SCRN A RAPID W CULT CONF [] Stat - Assessment/Plan Last 24 Hours: My Active Orders 01/17/20 04:42 CULTURE STREP A CONFIRMATION [RM] Stat STREP SCRN A RAPID W CULT CONF [] Stat
[2020-01-17] MEDS ORDERED: Famotidine 20 MG/2 ML SDV IVPUSH ONE (04:35)
[2020-01-17] MEDS ORDERED: diphenhydrAMINE 50 MG/ML SDV IVPUSH ONE ×2 (04:35→06:10)
[2020-01-17] MEDS ORDERED: Sodium Chloride 0.9% 20 ML ONE (04:40)
[2020-01-17] MEDS ORDERED: methylPREDNISolone Sodium Succinate 125 MG/2 ML SDV IV ONE (04:45)
== END 2020-01-17 07:14 | disposition home or self-care (01) ==
LOC: MW.ED 04:14
DX: J02.9 Acute pharyngitis, unspecified (principal); Z79.899 Other long term (current) drug therapy
CPT/HCPCS: 87081; 87880; 96374; 96375; 96376; 99284; J1200; J2930; S0028; 99282; J3490

== ENCOUNTER 2020-12-31 08:57 | Emergency (ER) | payer BC ==
--- NOTE | 2020-12-31 09:37 | EDM.PDOC ---
ED HPI GENERAL MEDICAL PROBLEM - General Chief Complaint: General Stated Complaint: SWELLING AT SURGICAL SI Time Seen by Provider: 12/31/20 09:00 - History of Present Illness INITIAL COMMENTS - FREE TEXT/NARRATIVE: 35-year-old male presenting with painful lump noted to the lumbar surgical site that he noticed last night. The patient had a pain pump implanted in June in [place]. Things have been going well with that he woke up with pain while laying on his back last night he has severe pain with pressure to the superior portion of his midline scar. With the area is not compressed he feels relatively well there is no radiculopathy no lower extremity weakness no fevers no chills no abdominal pain no other symptoms. No fevers patient otherwise feels well. Patient called his provider in [place] and was referred to the ED for evaluation. He has an appointment in 6 days to fly back to [place] and has not appointment with his surgical provider next day. back Pain Score (Numeric/FACES): 3 - Related Data Allergies Allergy/AdvReac Type Severity Reaction Status Date / Time No Known Allergies Allergy Verified 12/31/20 09:07 Home Meds: Home Meds Sertraline HCl [Zoloft] 100 mg PO DAILY 03/31/18 [History] Zolpidem Tartrate [Ambien] 10 mg PO DAILY 03/31/18 [History] lamoTRIgine [Lamictal] 100 mg PO DAILY 03/31/18 [History] Pregabalin [Lyrica] 100 mg PO BID 09/14/18 [History] Sulfamethoxazole/Trimethoprim [Bactrim Ds Tablet] 1 each PO BID 7 Days #14 tablet 12/31/20 [Rx] cephALEXin [Keflex] 500 mg PO Q6H 7 Days #28 cap 12/31/20 [Rx] Past Medical History HEENT History: Reports: None Cardiovascular History: Reports: None Respiratory History: Reports: None Gastrointestinal History: Reports: None Genitourinary History: Reports: None Musculoskeletal History: Reports: Arthritis, Back Pain, Chronic Neurological History: Reports: Brain Injury, Head Trauma Other Neuro History: bulging disc; 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 Psychiatric History: Reports: Bipolar, Depression Other Psychiatric History: insomnia Endocrine/Metabolic History: Reports: None Hematologic History: Reports: None Oncologic (Cancer) History: Reports: None Dermatologic History: Reports: None - Infectious Disease History Infectious Disease History: Reports: Chicken Pox - Past Surgical History Neurological Surgical History: Reports: None, Laminectomy, Lumbar Spine Other Neurological Surgeries/Procedures: patient reports chronic numbness to left leg Social & Family History - Family History Family Medical History: No Pertinent Family History - Tobacco Use Tobacco Use Status *Q: Current Every Day Tobacco User Years of Tobacco use: 20 Packs/Tins Daily: 1 - Caffeine Use Caffeine Use: Reports: Energy Drinks - Recreational Drug Use Recreational Drug Use: No ED ROS GENERAL - Review of Systems Review Of Systems: See Below Free Text/Narrative/Comment: General: No fever. Skin: No rash. Eyes: No vision problems. ENT: No sore throat. Neck: No neck stiffness. Respiratory: No shortness of breath. Cardiac: No chest pain. Gastrointestinal: No nausea, vomiting or abdominal pain. Urinary: No dysuria. Musculoskeletal: No myalgias/arthralgias. Neurologic: No headache. ED EXAM, GENERAL - Physical Exam Exam: See Below Free Text/Narrative:: General Appearance: No acute distress, appears comfortable Skin: No rash HEENT: Normocephalic/atraumatic, sclera anicteric, mucous membranes moist Neck: Normal range of motion Back: Patient with 3 surgical scars they are well-healed. The implanted pump is on the right side there is no erythema there is no tenderness there is no fluctuance. The most superior 5 mm of his upper vertical midline incision is minimally elevated there is a tender palpable cystic structure approximately 5 mm in diameter just deep to the skin. There is some very faint minimal overlying redness there is no erythema there is no spreading cellulitis Musculoskeletal: No edema or tenderness Neurologic: Awake, alert, no obvious deficits, moving all extremities Psychiatric: Appropriate, cooperative Course - Vital Signs Last Recorded V/S: Last Vital Signs Temp 97.4 F 12/31/20 09:42 Pulse 69 12/31/20 09:42 Resp 17 12/31/20 09:42 BP 115/77 12/31/20 09:42 Pulse Ox 97 12/31/20 09:42 Departure - Departure Time of Disposition: 09:33 Disposition: Home, Self-Care 01 Condition: Good Clinical Impression: Infected sebaceous cyst - Discharge Information *PRESCRIPTION DRUG MONITORING PROGRAM REVIEWED*: Not Applicable *COPY OF PRESCRIPTION DRUG MONITORING REPORT IN PATIENT TRESA: Not Applicable Prescriptions: Sulfamethoxazole/Trimethoprim [Bactrim Ds Tablet] 1 each PO BID 7 Days #14 tablet cephALEXin [Keflex] 500 mg PO Q6H 7 Days #28 cap Instructions: Skin Abscess Forms: ED Department Discharge Additional Instructions: It appears that you have a small skin cyst that is starting to get infected. Right now you have no signs of any deeper infection and the redness is very mild. However, because it is at a prior surgical site we are going to treated with antibiotics. Please take the entire antibiotic course. Please be sure to follow-up with your surgeon as scheduled in a week. If you have worsening pain worsening swelling fevers drainage from the area or any other new symptoms or concern you please call your doctor or return to the ER. The following information is given to patients seen in the emergency department who are being discharged to home. This information is to outline your options for follow-up care. We provide all patients seen in our emergency department with a follow-up referral. The need for follow-up, as well as the timing and circumstances, are variable depending upon the specifics of your emergency department visit. If you don't have a primary care physician on staff, we will provide you with a referral. We always advise you to contact your personal physician following an emergency department visit to inform them of the circumstance of the visit and for follow-up with them and/or the need for any referrals to a consulting specialist. The emergency department will also refer you to a specialist when appropriate. This referral assures that you have the opportunity for follow-up care with a specialist. All of these measure are taken in an effort to provide you with o ptimal care, which includes your follow-up. Under all circumstances we always encourage you to contact your private physician who remains a resource for coordinating your care. When calling for follow-up care, please make the office aware that this follow-up is from your recent emergency room visit. If for any reason you are refused follow-up, please contact the [facility] Emergency Department at and asked to speak to the emergency department charge nurse. Sepsis Event Note (ED) - Evaluation Sepsis Screening Result: No Definite Risk - Focused Exam Vital Signs: Vital Signs Temp Pulse Resp BP Pulse Ox 12/31/20 09:42 97.4 F 69 17 115/77 97 12/31/20 09:08 97.3 F 69 17 115/70 98 - Assessment/Plan Assessment:: 35-year-old male presenting with signs and symptoms most consistent with early infected sebaceous cyst. There were no systemic symptoms or findings on exam that would suggest a deeper infection at this point. He has no symptoms of cord compression or cauda equina. He has no risk factors for osteomyelitis. He has no risk factors for epidural abscess. The symptoms seem to be clearly confined to the small cystic structure. Given its proximity to the surgical site will treat with oral antibiotics for now strict return precautions regarding returning for fevers worsening pain worsening swelling spreading redness or other symptoms discussed and understood. Patient will follow up with his surgeon scheduled.
== END 2020-12-31 09:43 | disposition home or self-care (01) ==
LOC: MW.ED 08:57
DX: L72.3 Sebaceous cyst (principal); Z72.0 Tobacco use; Z79.899 Other long term (current) drug therapy
CPT/HCPCS: 99283